=== PATIENT | male | born 2005 | race Caucasian/White ===

== ENCOUNTER 2024-10-06 11:42 | Inpatient (IN) | payer OTHER, SELFPAY ==
--- NOTE | 2024-10-06 11:50 | ED.PSYCH ---
HPI - Psych General Chief Complaint: Behavioral Concerns Stated Complaint: section 12 Time Seen by Provider: 10/06/24 11:50 Source: patient Mode of arrival: ambulatory Limitations: no limitations History of Present Illness ED Provider: Charlene Dejesus NP HPI Narrative: Patient is a 19 old male who presents emergency department on a section 12 from the community, deemed in inpatient level of care bed search. For the section 12 there was report of attempted hanging himself, it is unclear when or how this may have occurred. When asked patient adamantly denies this. He states ?I am okay I need to get out of here to go to work later?. When asked whether he is experiencing any suicidal ideations or homicidal ideations he states ?I am fine?. He is otherwise not very forthcoming and does not provide any complaints at this time. According to the section 12 he has additionally been hopeless, having a low mood, some insomnia. It is unclear to me whether he is currently taking any medications. Related Data Allergies Allergy/AdvReac Type Severity Reaction Status Date / Time amoxicillin Allergy Hives Verified 10/06/24 12:05 Penicillins Allergy Hives Verified 10/06/24 12:05 Review of Systems Review of Systems: Yes all other systems are reviewed and are negative [facility] Past Medical History Attestation statement: The following information was validated with the patient. Source: old records reviewed Social History Social History Smoked in Last 30 Days: No Use of substances other than those prescribed or required for medical reasons: No Advance Directives: No Advance Directives Information Provided: Yes Physical Exam Vital Signs: Vital Signs: Last Vital Signs Temp 98.2 F 10/06/24 16:58 Pulse 77 10/06/24 16:58 Resp 18 10/06/24 16:58 BP 112/69 10/06/24 16:58 Pulse Ox 98 10/06/24 16:58 O2 Del Method Room Air 10/06/24 16:58 BMI result Body Mass Index 41.0 Appearance: Alert.?Oriented to person, place and time. No acute distress.?Normal affect. Eyes: Pupils equal, round and reactive to light.? ENT: Pharynx normal.??Uvula is midline. No trismus. No drooling. No hoarseness to the voice. Neck: Normal inspection.? Neck supple.? There is 2 very faint linear erythematous snell on the anterolateral neck, each side measuring approximately 1-2 cm. He has a additional similar snell over the bilateral anterior trapezius/shoulders which he reports is from scratching. ? CVS: Heart sounds normal. Normal heart rate and rhythm.? Pulses normal.?? Respiratory: No respiratory distress.? Lung sounds clear to auscultation bilaterally?? Abdomen: Soft and non-tender. Normoactive bowel sounds. Skin: Skin warm and dry.? Normal skin color.? Extremities: No lower extremity edema.? Neuro: Moves all extremities spontaneously. Sensation intact bilaterally. CN II-XII intact. No focal neuro deficits. Ambulates with normal steady gait. Medical Decision Making Medical Decision Making MDM Narrative: Patient is a 19-year-old male who presents emergency department on a section 12 due to SI with reported attempt as per HPI. Patient is not very forthcoming with any history. Offers no physical complaints. Per the section 12 there is reported attempt of hanging himself unclear when this might have occurred, On examination There is 2 very faint linear erythematous snell on the anterolateral neck, each side measuring approximately 1-2 cm, no evidence of hematoma, low suspicion for acute soft tissue injury. He has a additional similar snell over the bilateral anterior trapezius/shoulders which he reports is from scratching. ?There is no airway compromise. No hoarseness to his voice. LS CTA. There are no focal neurological deficits on examination that would indicate cerebral anoxia, or spinal column injury. Offering no physical complaints. Does not have findings overall concerning for significant ligature snell that would indicate significant injury requiring CT angio of the head/neck. I reviewed this with my attending Dr. Atkinson as well who agrees Advised by nursing staff patient refusing to have serum labs obtained for medical screening Differential Diagnosis Differential Diagnoses: The differential diagnosis associated with the presentation includes (See narrative above and below for further detail) Admission/Observation Consideration of admission/observation: Escalation of care including admission/observation considered Patient is being observed in the Emergency Department for depression and suicidal ideation with reported attempt. Observation time was started at 12:54 on 10/06/2024.?The patient is currently stable and non-toxic appearing. Observation is being initiated in the Emergency Department to allow time to help differentiate if the patient's depression and suicidal ideation with reported attempt is due to Substance Induced Mood Disorder and Anxiety versus Major Depressive Disorder, Bipolar Giselle, Bipolar Depression, and Schizophrenia. The patient will receive frequent psychiatric assessments from the provider as well as from nursing staff. The patient will also be monitored for the need of PRN agitation medications such as Haldol, Ativan, and Benadryl. Consult Healthcare Provider Management of the patient was discussed with: Behavioral Health Provider (CARE team) External Record Review External record reviewed: Outpatient record Tests considered The following testing was considered but not selected: See narrative above, CT angio imaging of head/neck deferred Discharge Plan Discharge Clinical Impression: Mental and behavioral problem Patient Disposition: Admitted As Inpatient Discharge Date/Time: 10/06/24 16:41
[2024-10-06 12:00] VITALS: BP 138/79; PULSE 79; RESP 16; TEMP 36.3; O2SAT 100; BMI 41.0
--- NOTE | 2024-10-06 12:15 | PC.NURSE ---
Patient is a 19 yo male who presents from the community via PD with suicide attempt either last night or today in which he attempted to hang self. Patient texted his team and informed them of this. Patient has been depressed, feeling hopeless and thoughts of self harm. Refusing to engage in services. Was evaluated in the community and placed on a section 12 and will require IPLOC. Patient quiet, soft spoken with minimal eye contact. Flat affect. Refusing to engage with this RN. States he does not know why he is here. Cooperative with care. Patient changed into psych safe clothing, belongings removed, labeled and secured. Placed in room 1.
--- OUTSIDE RECORDS SUMMARY | 2024-10-06 14:07 | XMS_ITS | Clinical Summary ---
Author Organization [employer] Address [address] [place] [address] [address] [place] [address] Care Team Providers Care Budget And Policy Analyst Name Role Phone Unavailable Primary Care Provider Unavailabl e Social History Tobacco Use Types Packs/Day Years Used Date Smoking Tobacco: Never Assessed Sex and Gender Information Value Date Recorded Sex Assigned at Not on file Legal Sex Male 1:48 PM EST Gender Identity Not on file Sexual Orientation Not on file Plan of Treatment Health Maintenance Due Date Last Done Comments Chlamydia and Gonorrhea Screening 2004 Depression Screening 2004 HIV Screening 2004 SDOH Screening 2004 Disability Screening 2004 Alcohol/Substance Use Screening 2016 Tobacco Screening 2016 Family Planning (PISQ) 07/09/2019 HPV Vaccines (1 - Male 3-dos e series) 07/09/2019 Meningococcal B Vaccine (1 o f 2 - Standard) 2020 Hepatitis C Screening 2022 DTaP/Tdap/Td Vaccines (1 - Tdap) 07/09/2023 Hepatitis B Vaccines (1 of 3 - 19+ 3-dose series) 07/09/2023 COVID-19 Vaccine (1 - 2023-2 5 season) 2023 Influenza Vaccine (#1) 2024 Zoster Vaccines (1 of 2) 2054 RSV Patients and Pa tients Aged 60 years or older (1 - 1-dose 75+ series) 07/09/2079 HIB Vaccines Aged Out No longer eligi ble based on patient's age to complete this topic Hepatitis A Vaccines Aged Out No long er eligible based on patient's age to complete this topic IPV Vaccines Aged Out No longer eligi ble based on patient's age to complete this topic Meningococcal Vaccine Aged Out No apollo tray eligible based on patient's age to complete this topic Pneumococcal Vaccine: Pediat rics (0 to 5 Years) and At-Risk Patients (6 to 49) Years Aged Out No longer eligible b ased on patient's age to complete this topic RSV under 20 months Aged Out No longe r eligible based on patient's age to complete this topic Rotavirus Vaccines Aged Out No longer eligible based on patient's age to complete this topic
--- OUTSIDE RECORDS SUMMARY | 2024-10-06 14:07 | XMS_ITS | Clinical Summary ---
Author Organization [facility] Address [address] [place] [phone] Phone Care Team Providers Care Technical Sales Support Manager Name Role Phone Rhona Cole NP Primary Care Provider [phone] Allergies Active Allergy Reactions Criticality Noted Date Comments Amoxicillin 01/04/2019 Penicillin G 06/05/2021 Medications Ventolin HFA 108 (90 Base) MCG/ACT inhalerIndicatio ns:Mild intermittent asthma without complication Inhale 2 puffs every 4 (four) hours as needed for wheezing or shortness of breath. 2 Units 1 3 Active Additional Information Patient not taking.Reported on 12/08/2022 Active Problems Problem Noted Date Diagnosed Date Problem related to nonsupportive living environm ent 07/28/2024 Assessment & Plan (07/28/2024 10:25 AM EDT): Concern with living environment Given ages of siblings (12 and 17) will file 51A Hyperlipidemia 07/28/2024 Assessment & Plan (07/28/2024 10:25 AM EDT): Recheck cholesterol today Work toward healthy diet and exercise Acute cough 01/25/2024 Assessment & Plan (01/25/2024 12:48 PM EST): No crackles or wheezing heard but suspicious of pneumonia based on history Will send for chest x ray Well adult exam 01/21/2023 Assessment & Plan (01/25/2024 12:50 PM EST): Recheck blood work in 6 months [facility] counseling completed Young Adult Plan: Get 8-9 hours of sleep per night. Eat healthy diet including 5 servings fruits and vegetables, no daily soda or juice, 3 servings calcium rich foods daily. Get one hour of exercise daily. Wear seatbelt in car, helmet while riding bike. Dental checkup every 6 months If wears eyeglasses or contacts, vision exam yearly Personal space, safe sex, bullying counseling done. Assessment & Plan (01/21/2023 11:36 AM EST): Young Adult Plan: Get 8-9 hours of sleep per night. Eat healthy diet including 5 servings fruits and vegetables, no daily soda or juice, 3 servings calcium rich foods daily. Get one hour of exercise daily. Wear seatbelt in car, helmet while riding bike. Dental checkup every 6 months If wears eyeglasses or contacts, vision exam yearly Personal space, safe sex, bullying counseling done. Decreased hearing of both ears 01/21/2023 Assessment & Plan (01/21/2023 11:36 AM EST): Concern for hearing loss. Will send to audiology for further evaluation Posttraumatic stress disorder 12/22/2021 Assessment & Plan (01/25/2024 12:47 PM EST): Seeing a therapist weekly Does not wish to discuss further Moderate episode of recurrent major depressive d isorder 12/22/2021 Assessment & Plan (01/21/2023 11:38 AM EST): Recent hospitalization. Working with [facility]. Put on abilify but Justus states he does not want to take this fdc. Will be seeing a psychiatrist at [facility] today and his therapist later this evening. Seems to have appropriate resources in place for now. Will recheck in 6 months unless our support is needed sooner. Justus is agreeable to sign a release form so that I can receive notes from [facility]. Morbid obesity 12/22/2021 Assessment & Plan (07/21/2023 10:38 AM EDT): Lipid panel was high at last visit. Instructed to go for fasting blood work but has not gone. Given lab slip to go for fasting blood work. Ganglion cyst of wrist, right 02/01/2021 Assessment & Plan (01/21/2023 11:38 AM EST): No wrist pain Resolved Problems Problem Noted Date Diagnosed Date Resolved Date Dizziness 04/29/2023 01/25/2024 Assessment & Plan (07/21/2023 10:39 AM EDT): Per patient dizziness has improved. Most questions asked the patient stated I would not know . It was hard to get a good understanding of how he is doing overall. Based on the information I received today, it seems as though Justus is not currently taking any medications or seeing a medication provider which was highly encouraged last visit. He is however seeing a therapist weekly. States he feels safe at home. He did not seem to have any concerns today. We will see him back in January. Assessment & Plan (04/29/2023 12:26 PM EST): Will do blood work to r/o some underlying causes for dizziness Dizziness and nausea may be related to untreated mental health Justus was on abilify but has taken himself off He missed his last med provider appointment Reminder of importance of staying on track with psych and therapy Begin journal of symptoms. Follow up in one month Chronic pain of right knee 12/22/2021 1 03/26/2023 Overview (01/05/2022): 12/22/2021 - [facility]. Patellar tendonitis with prior possible patellar avulsion fracture. Assessment & Plan (01/21/2023 11:39 AM EST): Improving. Did not seen Luz Maria'nadia. Does not feel this is necessary any longer. Assessment & Plan (12/22/2021 1:49 PM EDT): Pain in right knee for over 2 months since falling on knee. Some mild medial side pain with palpation. No other localizing signs on exam. Will refer to [facility] for further evaluation. Encounters Date Type Department Care Team Description 08/01/2024 Results Follow-Up [facility] [address] [place] [address] [place] [address] Rhona Cole NP 07/28/2024 9:45 AM EDT Office Visit [facility] [address] [place] [address] [place] [address] Rhona Cole NP Overweight (Primary Dx); Hyperlipidemia, unspecified hyperlipidemia type; Morbid obesity; Screening for diabetes mellitus; Screening for STD (sexually transmitted disease); Problem related to nonsupportive living environment from Last 3 Months Immunizations Immunization Administration Dates Next Due COVID-19 Pfizer, monovalent, 12+ years 1 DTaP 10/23/2009, 6,01/13/2005,12/03,2004 HPV Vaccine 9 Valent 07/11/2018,06/25/2017 Hep A, ped/adol 01/08/2020,07/11/2018 Hep B, ped/adol 01/13/2005,2004,2004 HiB 01/26/2006, 5,2004,09/10 IPV 10/23/2009, 5,2004,09/10 Influenza, injectable, quadrivalent 01/04/2019 Influenza, injectable, quadr ivalent, preservative free 01/21/2023,01/16/2021,12/12/2019 Influenza, injectable, triva lent, preservative free 01/25/2024 MMR 10/23/2009,08/17/2005 Meningococcal Conj (Menactra) MCV4P 01/16/2021,0 06/25/2017 Pneumococcal Conjugate 07/09/2005,2004,2004,09/10 Tdap 05/05/2018,06/25/2017 Varicella 10/23/2009,07/09/2005 Family History Medical History Relation Name Comments ADD / ADHD Brother Bull Anxiety disorder Father Bull Depression Father Bull PTSD Father Bull No Known Problems Sister Jennifer Relation Name Status Comments Brother Bull Alive Father Bull Alive Mother Cassie Sister Jennifer Alive Social History Tobacco Use Types Packs/Day Years Used Date Smoking Tobacco: Never Smokeless Tobacco: Never Alcohol Use Standard Drinks/Week Comments Never 0 (1 standard drink = 0.6 oz pur e alcohol) Hunger/Food Answer Date Recorded In the last 12 months, did y ou or your family ever eat less than you felt you should because there wasn't enough money for food? No 01/25/2024 Stable Housing Answer Date Recorded Are you worried that in the next 2 months you may not have stable housing? No 01/25/2024 Transportation Concerns Answer Date Rec orded In the last 12 months, have you or your family ever had to go without healthcare because you didn't have a way to get there? No 01/25/2024 Hazards in Home Answer Date Recorded Think about the place you li ve. Do you have problems with any of the following? Pests (mice or roaches), mold, no/not working smoke detectors, water leaks, no window guards. No 2023 Financing Utilities Answer Date Recorde d In the last 12 months, has t he electric, gas, oil, or water company threatened to shut off your services in your home? No 01/25/2024 Safety at Home Answer Date Recorded Are you or your family worried about feeling saf e in your home? No 01/25/2024 Outside Support Answer Date Recorded Do you feel that you need mo re support from other people or programs to help you care for yourself or your family? Yes 01/25/2024 Understanding Health Concerns Answer Da te Recorded Do you need help understandi ng your or your child's healthcare needs (diagnosis, medications, plan, etc.)? No 01/25/2024 Financing Health Concerns Answer Date R ecorded In the last 12 months, was t here a time when your child needed to see a doctor or get medications or supplies but could not because of cost? No 01/25/2024 Missing School or Work Answer Date Adryan rded Did you or your child miss s chool or work because of a health problem that could have been avoided? No 01/25/2024 Child Education Answer Date Recorded Do you have concerns about y our/your child's learning or behavior in school, preschool, or daycare? No 01/25/2024 Sex and Gender Information Value Date Recorded Sex Assigned at Male 01/21/2023 11:20 AM EST Legal Sex Male 6:04 PM EDT Gender Identity Male 01/21/2023 11:20 AM EST Sexual Orientation Bisexual 01/21/2023 11 :20 AM EST Last Filed Vital Signs Vital Sign Reading Time Taken Comments Blood Pressure 112/80 07/28/2024 9:53 AM EDT Pulse 120 01/25/2024 11:07 AM EST Temperature 36.3 C (97.3 F) 01/25/2024 11:07 AM EST Respiratory Rate - - Oxygen Saturation - - Inhaled Oxygen Concentration - - Weight 125 kg (275 lb) 07/28/2024 9:53 AM EDT Height 174 cm (5' 8.5 ) 01/25/2024 11:07 AM EST Body Mass Index 41.21 01/25/2024 11:07 AM EST Plan of Treatment Upcoming Encounters Date Type Department Care Team (Late st Contact Info) Description 01/25/2025 11:00 AM EST Office Visit [facility] [address] [place] [address] Rhona Cole, BEATER MACHINE OPERATOR [address] [place] [address] Health Maintenance Due Date Last Done Comments Men B Vaccine (1 of 2 - Standard) 2020 COVID-19 Vaccine (2023-2 5 season) 2023 02/15/2023, 08/02/2020, 07/12/2020 Influenza Vaccines (#1) 2024 01/25/20 24, 01/21/2023, 01/16/2021, Additional history exists DTaP,Tdap,and Td Vaccines (8 - Td or Tdap) 05/05/2028 05/05/2018, 06/25/2017, 10/23/2009, Additional history exists Hepatitis B Vaccines Completed 01/13/2005, 2004, 2004 Pneumococcal Vaccine Completed 07/09/2005, 02/18/2005, 2004, Additional history exists HIB Vaccines Completed 01/26/2006, 02/05, 2004, Additional history exists IPV Vaccines Completed 10/23/2009, 10/2004, 2004, Additional history exists MMR Vaccines Completed 10/23/2009, 08/17/2005 Varicella Vaccines Completed 10/23/2009, 07/09/2005 HPV Vaccines Completed 07/11/2018, 06/25/2017 Hepatitis A Vaccines Completed 01/08/2020, 07/12/19 Meningococcal Vaccine Completed 01/16/2021, 018 Procedures * Due to [place] law, this organization might not be sharing sensitive test results. Procedure Name Priority Date/Time Associated Diagnosis Comments COMPREHENSIVE METABOLIC PANEL Routine 07/28/2024 10:18 AM EDT Morbid obesity Screening for diabetes mellitus HEMOGLOBIN A1C Routine 07/28/2024 10:18 AM EDT Morbid obesity Screening for diabetes mellitus LIPID PANEL Routine 07/28/2024 10:18 AM EDT Hyperlipidemia, unspecified hyperlipidemia type CHLAMYDIA AND GONORRHEA, AMPLIFIED Routine 07/28/2024 10:15 AM EDT Screening for STD (sexually transmitted disease) from Last 3 Months Results * Due to [place] state law, this organization might not be sharing sensitive test results. * Hemoglobin A1c (07/28/2024 10:18 AM EDT) Hemoglobin A1C 5.5 4.8 - 5.6 % [facility] Comment: Prediabetes: 5.7 - 6.4 Diabetes: >6.4 Glycemic control for adults with diabetes: <7.0 Blood 07/28/2024 10:1 8 AM EDT 07/28/2024 Narrative [facility] - 07/29/2024 2:05 AM EDT Performed at: 01 - [facility] [id number] Inspector Final Assembly Electrical: Leeanna Goldstein MD, Phone: [phone] us Rhona Cole NP LAB BLOOD ORDERABLES Final Res ult [facility] [address] [place] [address] * (ABNORMAL) Lipid panel (07/28/2024 10:18 AM EDT) Cholesterol, Total 189 100 - 199 mg/dL [facility] Triglycerides 97 0 - 149 mg/dL [facility] HDL 43 >39 mg/dL [facility] VLDL, Calculated 18 5 - 40 mg/dL [facility] LDL Chol Calc 128(H) 0 - 99 mg/dL [facility] Blood 07/28/2024 10:1 8 AM EDT 07/28/2024 Narrative [facility] - 07/29/2024 7:05 AM EDT Performed at: 01 - [facility] [id number] Inspector Final Assembly Electrical: Leeanna Goldstein MD, Phone: [phone] Rhona Cole NP LAB BLOOD ORDERABLES Final Res ult Performing Organization Address City/State/[facility] Co de Phone Number [facility] [address] [place] [address] * (ABNORMAL) Comprehensive metabolic panel (07/28/2024 10:18 AM EDT) Glucose 86 70 - 99 mg/dL [facility] Urea Nitrogen 9 6 - 20 mg/dL [facility] Creatinine 1.16 0.76 - 1.27 mg/dL [facility] BUN/Creatinine Ratio 8(L) 9 - 20 [facility] Sodium 144 134 - 144 mmol/L [facility] Potassium 4.1 3.5 - 5.2 mmol/L [facility] Chloride 102 96 - 106 mmol/L [facility] Carbon Dioxide, Total 18(L) 20 - 29 mmol/L [facility] Calcium 9.6 8.7 - 10.2 mg/dL [facility] Protein, Total 7.2 6.0 - 8.5 g/dL [facility] Albumin 4.8 4.3 - 5.2 g/dL [facility] Globulin Total 2.4 1.5 - 4.5 g/dL [facility] Bilirubin, Total 0.4 0.0 - 1.2 mg/dL [facility] Alkaline Phosphatase 80 51 - 125 IU/L [facility] AST (SGOT) 26 0 - 40 IU/L [facility] ALT (SGPT) 46(H) 0 - 44 IU/L [facility] Blood 07/28/2024 10:1 8 AM EDT 07/28/2024 Narrative [facility] - 07/29/2024 1:05 PM EDT Performed at: - [facility] [id number] Inspector Final Assembly Electrical: Leeanna Goldstein MD, Phone: [phone] Rhona Cole NP LAB BLOOD ORDERABLES Final Res ult [facility] [address] [place] [address] * Chlamydia and Gonorrhea, Amplified (07/28/2024 10:15 AM EDT) C trach KATERINA Negative Negative [facility] N gonorrhoeae KATERINA Negative Negative [facility] Urine (Urine) 07/28/2024 10: 15 AM EDT 07/28/2024 Comment:Urine Narrative [facility] - 08/01/2024 3:05 PM EDT Performed at: [facility] [address], [address], [place], [place] [id number] Inspector Final Assembly Electrical: Dagoberto Mancera MD, Phone: [phone] Rhona Cole NP LAB MICROBIOLOGY - GENERAL ORD ERABLES Final Result Performing Organization Address [facility] Co de Phone Number [facility] [address] [place] [address] from Last 3 Months Insurance [facility] Care Teams Technical Sales Support Manager Relationship Specialty Start Date End Date Rhona Cole NP [address] [place] [address] PCP - General Pediatrics 08/25/22
--- NOTE | 2024-10-06 15:43 | PC.NURSE ---
Patient informed that he was going to be admitted to the in-patient behavioral health unit. Patient requested to be discharge and informed he was on a section 12 by the community provider. Patient stated he needed to go to work and he had some appointment regarding his health. Patient noted to attempt to leave via locked unit doors. Security notified and patient noted to be visibly frightened repeating don't hurt me . Security able to de-escalate and re-direct patient back to his room. Allowed patient utilize personal phone in order to make important phone calls. Anxiety medication offered of which patient declined, stating he was medicated in his childhood which prevented him from processing especially his trauma .
[2024-10-06 16:57] VITALS: BMI 41.4
[2024-10-06 16:58] VITALS: BP 112/69; PULSE 77; RESP 18; TEMP 36.8; O2SAT 98
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
[2024-10-06 20:20] VITALS: BP 140/64; PULSE 83; RESP 18; TEMP 36.7; O2SAT 97
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
[2024-10-07 07:51] VITALS: BP 133/66; PULSE 75; RESP 16; TEMP 36.4; O2SAT 97
[2024-10-07 20:00] VITALS: BP 133/88; PULSE 76; RESP 16; TEMP 36.9; O2SAT 96
--- NOTE | 2024-10-07 20:50 | PM.EVENT ---
Event Note Date of Service: 10/07/24 Event Note: Pt is a 19 year old male admitted to M3 psychiatry unit with hospitalist consult for lump on anus and bloody when wiping, likely secondary to hemorrhoids. Treat with hemorrhoidal topical ointment/suppository. If symptoms persist or worsen, consider general surgery consult. Time Spent With Patient Time: Total time managing care of this patient today ____ minutes.
[2024-10-08 07:06] LABS: MANUAL DIFF FLAG NO
[2024-10-08 07:09] LABS: Hematocrit 47.5 % (42.0-52.0); Hemoglobin 16.8 g/dl (14.0-18.0); Imm Gran Abs Auto 0.02 X10*3/uL (0.00-0.03); Imm Gran Pct Auto 0.3 % (0.0-0.4); Lymphocytes Absolute Auto 2.3 X10*3/uL (1.2-4.9); Mean Corpuscular HGB Conc 35.4 g/dl (31.0-36.0); Mean Corpuscular Hemoglobin 29.2 pg (27.0-33.0); Mean Corpuscular Volume 82.5 fL (80.0-98.0); NRBC Abs Auto 0.000 X10*3/uL (0.0-0.012); NRBC Pct Auto 0.0 /100WBC (0.0-0.2); Platelet Count 278 X10*3/uL (160-400); Red Blood Count 5.76 X10*6/uL (4.60-5.80); White Blood Count 7.9 X10*3/uL (4.8-10.8)
[2024-10-08 07:25] LABS: Hemoglobin A1C 153.7362 umol/L; Total Hemoglobin (HGBA1C) 4373.4307 umol/L
[2024-10-08 07:26] LABS: Acetaminophen LAB < 3 mcg/mL (<30); Salicylate < 5.0 mg/dL (15-30)
[2024-10-08 07:28] LABS: Alanine Aminotransferase 77 U/L (0-40); Albumin Level 5.0 g/dL (3.5-5.0); Alkaline Phosphatase 84 U/L (39-117); Anion Gap 11 (12-20); Aspartate Amino Transferase 36 U/L (5-37); Blood Urea Nitrogen 13 mg/dL (9-16); Calcium 10.1 mg/dL (8.4-10.2); Carbon Dioxide 29 mmol/L (22-29); Chloride 104 mmol/L (96-108); Cholesterol 211 mg/dL (<200); Creatinine Clr Calc Pharmacy 133.4; Estimated Glomerular Filt Rate > 60; HDL Cholesterol 43 mg/dL (>40); Potassium 4.1 mmol/L (3.3-5.1); Sodium 140 mmol/L (135-145); Total Protein 8.0 g/dL (6.5-8.0); Triglycerides 119 mg/dL (<150)
[2024-10-08 08:00] VITALS: BP 131/79; PULSE 64; RESP 16; TEMP 36.2; O2SAT 98
[2024-10-08 20:00] VITALS: BP 131/84; PULSE 81; RESP 16; TEMP 36.4; O2SAT 98
--- NOTE | 2024-10-08 21:55 | HO.PSYCHPN ---
Subjective Subjective Date of Service: 10/08/24 Reason For Visit: SI Subjective Notes: 3 Day Healthcare Proxy: No Guardianship: No Medical Problems Affecting Mental Status: No Interim History: Medical record and nursing notes reviewed; case discussed during rounds with team/nursing staff, and met with patient for supportive therapy/psychoeducation, as well as medication management. Patient slept well with melatonin, refused prazosin for PTSD, isolative, but sometimes out on the unit watching TV. Shower, no behavior issues. Reports some normal intrusive thoughts, no thoughts of hurting anyone else, denies hallucinations. He is coloring and drawing in his room. He will have an appointment with a therapist on Wednesday. And who that treatment team can either help him make a phone call or rescheduled it for him. Medication Compliance: No (Refused prazosin) Side effects from medications: No Attending Groups: No Review of Systems Acute medical concerns: No Medical Review of Systems: unchanged Review of Systems Review of Systems Constitutional: Denies fatigue and Denies fever(s) Cardiovascular: Denies chest pain and Denies dyspnea Respiratory: Denies dyspnea Gastrointestinal: Denies abdominal pain Psychiatric: denies suicidal ideation Endocrine: Denies fatigue Yes all other systems are reviewed and are negative Mental Status Exam Mental Status Exam Narrative: Patient is alert and oriented; behavior is cooperative, friendly with mild to moderate anxiety; patient is not in distress; dressed in hospital attire with unkempt hair but adequate hygiene; mood is described as good and affect congruent; eye contact appropriate; Speech is normal rate, volume and prosody and not pressured; no psychomotor agitation/retardation present; thought process is organized and goal directed; Thought content is WNL, pertinent to relevant topics and without any delusional content, paranoid ideation or grandiosity; denies any SI/SIB/HI. Denies AH and there is no evidence of perceptual disturbance. Patient's insight and judgment fair. Diagnostics Vital Signs (24Hr): Vital Signs - 24 hr 10/08/24 08:00 Temperature 97.2 F Pulse Rate 64 Respiratory Rate 16 Blood Pressure 131/79 Pulse Oximetry 98 Oxygen Delivery Method Room Air BMI result Body Mass Index 41.4 Labs 10/08/24 06:59 10/08/24 06:59 Labs: Laboratory Results - last 48 hr 10/08/24 06:59 WBC 7.9 RBC 5.76 Hgb 16.8 Hct 47.5 MCV 82.5 MCH 29.2 MCHC 35.4 RDW 12.0 Plt Count 278 MPV 10.2 Immature Gran % (Auto) 0.3 Neut % (Auto) 56.9 Lymph % (Auto) 29.1 [place] % (Auto) 7.7 Eos % (Auto) 5.6 H Baso % (Auto) 0.4 Lymph # (Auto) 2.3 [place] # (Auto) 0.6 Eos # (Auto) 0.4 Baso # (Auto) 0.0 Abs Immat Gran (auto) 0.02 Absolute Neuts (auto) 4.5 Absolute Nucleated RBC 0.000 Nucleated RBC % (auto) 0.0 Sodium 140 Potassium 4.1 Chloride 104 Carbon Dioxide 29 Anion Gap 11 L BUN 13 Creatinine 1.13 Estim Creat Clear Calc 133.4 Estimated GFR > 60 Random Glucose 114 Estimat Average Glucose 108 Hemoglobin A1c % 5.4 Calcium 10.1 Total Bilirubin 0.7 AST 36 ALT 77 H Alkaline Phosphatase 84 Total Protein 8.0 Albumin 5.0 Triglycerides 119 Cholesterol 211 H LDL Cholesterol, Calc 145 H HDL Cholesterol 43 Salicylates < 5.0 L Acetaminophen < 3 Medications Medications Current Medications Acetaminophen (Acetaminophen 325 Mg Tablet) 650 mg PO Q6H PRN PRN Reason: Headache/Pain, Scale 1-10 Al Hydroxide/Mg Hydroxide (Magnesium Hydrox/Alum Hydrox 30 Ml Oral.Susp) 30 ml PO Q6H PRN PRN Reason: Heartburn/Nausea Hydrocortisone (Hydrocortisone 2.5 % Rectal Cr 30 Gm Tube) 1 appl [place] BID PRN PRN Reason: Hemorrhoids Hydroxyzine HCl (Hydroxyzine Hcl 50 Mg Tablet) 50 mg PO Q6H PRN PRN Reason: mild anxiety Magnesium Hydroxide (Milk Of Magnesia 30 Ml Oral.Susp) 30 ml PO DAILY PRN PRN Reason: Constipation Melatonin (Melatonin 3 Mg Tablet) 6 mg PO BEDTIME CORNEL Last Admin: 10/08/24 20:00 Dose: 6 mg Nicotine Polacrilex (Nicotine Polacrilex 2 Mg Gum) 4 mg BUCCAL Q2H PRN PRN Reason: Nicotine Cravings Olanzapine (Olanzapine 5 Mg Tablet) 5 mg PO Q4H PRN PRN Reason: agitation Prazosin HCl (Prazosin Hcl 1 Mg Capsule) 1 mg PO BEDTIME CORNEL; Protocol Last Admin: 10/07/24 20:17 Dose: Not Given Trazodone HCl (Trazodone Hcl 50 Mg Tablet) 50 mg PO BEDTIME MRX1 PRN PRN Reason: Insomnia Allergies Allergies Allergy/AdvReac Type Severity Reaction Status Date / Time amoxicillin Allergy Hives Verified 10/06/24 12:05 Penicillins Allergy Hives Verified 10/06/24 12:05 Assessment & Plan Assessment & Plan (1) PTSD (post-traumatic stress disorder): Status: Acute Code(s): F43.10 - Post-traumatic stress disorder, unspecified (2) ADHD: Status: Acute Code(s): F90.9 - Attention-deficit hyperactivity disorder, unspecified type (3) MDD (major depressive disorder), recurrent episode: Status: Acute Code(s): F33.9 - Major depressive disorder, recurrent, unspecified Plan HPI: Patient is a 19 years old male with hx of PTSD, Autism, ADHD, depression, and ?OCD who was seen and assessed better request the caser shoe parts toll collector supervisor secondary to receiving a text message from patient reporting a reason attempt to end his life via hanging. CC was brought in by the campus police officer. They told me try to hang myself . Reports that he has not sleeping for 2 days which making everything harder, and he can not recall what he did. Severe trauma history, recently reports lots of deaths in the family in the past 2 years. The most recent was his mom's grandmother wants to 2 weeks ago. Formulation/clinical reasoning: Recently experienced loss of lost, PTSD, increasing stress and depression, decreased sleep and appetite, has not slept for 2 a 3 night prior to commit suicide-he hung himself. History of autism, PTSD, depression, and? OCD-intrusive thoughts at baseline but no thoughts of hurting other people, experience AVH history. He tends to be minimize poor insight about the dangers of his suicide attempt. Given the above information, patient will be benefit from restrictive environment for his safety, monitor for depressive symptoms. Medication management, learn coping skills, and refer patient to outpatient psychiatrist-therapist as aftercare. Hospital course: 10/07/24: He may refused prazosin, and he is not interested in taking medication. Prazosin 1 mg at bedtime for PTSD. Melatonin for insomnia. 10/08/24: Patient slept well with melatonin, refused prazosin for PTSD, isolative, but sometimes out on the unit watching TV. Shower, no behavior issues. Reports some normal intrusive thoughts, no thoughts of hurting anyone else, denies hallucinations. He is coloring and drawing in his room. He will have an appointment with a therapist on Wednesday morning and hope treatment forensics team director can either help him make a phone call or rescheduled it for him. Plan Patient on 15 minute checks for safety. Admitted to . CV. Three day notice on 10/11. Work with treatment team to do collateral and outpatient psychiatry for aftercare. Patient educated on: diagnosis, medication risk/benefits and therapeutic strategies Informed Consent: understands and further education needed Reason for continued inpatient stay Substantial Risk for: med/psych decompensation Time Spent With Patient Time: Total time managing care of this patient today ____ minutes.
[2024-10-09 08:00] VITALS: BP 109/64; PULSE 70; RESP 16; TEMP 36.4; O2SAT 99
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
[2024-10-09 20:00] VITALS: BP 98/55; PULSE 72; RESP 16; TEMP 36.9; O2SAT 98
[2024-10-09] MEDS: Hydrocortisone 2.5 % Rectal Cr 30 GM TUBE 1 APPL PR (22:11)
[2024-10-10] MEDS: Hydrocortisone 2.5 % Rectal Cr 30 GM TUBE 1 APPL PR ×2 (07:00→19:41)
--- NOTE | 2024-10-10 07:00 | PC.NURSE ---
requesting use of scheduled hydrocortisone cream 2.5% at this time.
[2024-10-10 08:00] VITALS: BP 138/82; PULSE 70; RESP 16; TEMP 36.4; O2SAT 98
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
[2024-10-10 21:00] VITALS: BP 120/70; PULSE 76; RESP 16; TEMP 36.9; O2SAT 97
[2024-10-11 07:38] VITALS: BP 122/67; PULSE 69; RESP 18; TEMP 36.4; O2SAT 98
[2024-10-11] MEDS: Hydrocortisone 2.5 % Rectal Cr 30 GM TUBE 1 APPL PR (09:05)
== END 2024-10-11 09:53 | disposition home or self-care (01) | DRG 751 ==
LOC: HO.ED 14:05 → HO.PADLT16 14:54
PROVIDERS: Nurse Practitioner Family; Admitting Provider Registered Nurse; Emergency Provider Emergency Medicine; Visit Provider Psychiatry & Neurology Psychiatry
DX: F33.9 Major depressive disorder, recurrent, unspecified (principal); F43.10 Post-traumatic stress disorder, unspecified; F84.0 Autistic disorder; F90.9 Attention-deficit hyperactivity disorder, unspecified type; K64.9 Unspecified hemorrhoids
CPT/HCPCS: 36415; 80053; 80061; 80143; 80179; 83036; 85025; 99284

== ENCOUNTER → 2024-10-06 14:54 | Outpatient (BNV) | payer OTHER, SELFPAY | PROVIDERS: Admitting Provider Registered Nurse; Emergency Provider Emergency Medicine; Visit Provider Psychiatry & Neurology Psychiatry | DX: F33.2 Major depressive disorder, recurrent severe without psychotic features (principal); F43.11 Post-traumatic stress disorder, acute; F90.9 Attention-deficit hyperactivity disorder, unspecified type | CPT/HCPCS: 99232 ==